=== PATIENT | female | born 2000 | race Caucasian/White ===

== ENCOUNTER 2022-12-28 11:53 | Emergency (ER) | payer OTHER, MEDICAID ==
[~2022-12-28] VITALS: Ht 180.3 cm; Wt 135.0 kg
[2022-12-28 13:00] VITALS: BP 125/80
[2022-12-28] MEDS ORDERED: ORPH100T2 PO (15:29)
[2022-12-28] MEDS ORDERED: NAPR-56 PO (15:29)
[2022-12-28] MEDS ORDERED: orphenadrine citrate 60mg/2ml inj. IM ONE (15:30)
[2022-12-28] MEDS ORDERED: ketorolac trometh inj. 60 MG/2 ML VIAL IM ONE (15:30)
== END 2022-12-28 16:02 | disposition home or self-care (01) ==
LOC: ER 11:53
DX: S13.4XXA Sprain of ligaments of cervical spine, initial encounter (principal); M62.830 Muscle spasm of back; R07.89 Other chest pain; V87.7XXA Person injured in collision between other specified motor vehicles (traffic), initial encounter; Y93.89 Activity, other specified; Y92.488 Other paved roadways as the place of occurrence of the external cause; Y99.8 Other external cause status
CPT/HCPCS: 71046; 96372; 99284; J1885; J2360

== ENCOUNTER 2024-03-06 13:42 | Outpatient (CLI) | payer MEDICAID ==
[~2024-03-06 13:42] MED LIST: ORPH100T4 PO
== END 2024-03-06 23:59 | disposition home or self-care (01) ==
LOC: RAD 13:42
PROVIDERS: ATTEND Physician Assistant
DX: M41.86 Other forms of scoliosis, lumbar region (principal)
CPT/HCPCS: 72070; 72100